=== PATIENT | male | born 1985 | race African-American/Black ===

== ENCOUNTER 2019-10-22 03:54 | Emergency (ER) | payer MEDICAID ==
[~2019-10-22] VITALS: Ht 182.9 cm; Wt 84.0 kg
[2019-10-22] MEDS ORDERED: SODIUM CHLORIDE 0.9% 1,000 ML IV ONE (04:09)
[2019-10-22] MEDS ORDERED: CEFAZOLIN 1000MG PREMIX 50 ML IV ONE (04:15)
[2019-10-22] MEDS ORDERED: ONDANSETRON HCL 4MG/2ML INJ IV ONE (04:15)
[2019-10-22] MEDS ORDERED: MORPHINE SULFATE 4 MG/ML CPJ (NOT FOR IM USE) IV ONE (04:15)
[2019-10-22] MEDS ORDERED: KETAMINE HCL 50 MG/ML 10ML IV ONE (04:15)
[2019-10-22] MEDS ORDERED: BACITRACIN ZINC OINT UDPKT TOP ONE (04:15)
[2019-10-22] MEDS ORDERED: TETANUS, DIPHTHERIA, PERTUSSIS VAC/PF 0.5ML (>7YR OLD) IM ONE (04:15)
[2019-10-22 04:55] LABS: BASOPHILS % 0.5 % (0.0-2.0); EOSINOPHILS % 1.7 % (0.0-5.0); HEMATOCRIT. 42.7 % (42.0-52.0); HEMOGLOBIN. 14.9 g/dL (14.0-18.0); LYMPHOCYTES % 20.5 % (20.0-50.0); MEAN CORPUSCULAR HEMOGLOBIN 32.2 pg (28.0-32.0); MEAN CORPUSCULAR VOLUME 92.4 fL (80.0-94.0); MEAN PLATELET VOLUME 7.5 fl (7.4-10.4); MONOCYTES % 6.2 % (2.0-8.0); NEUTROPHILS % 71.1 % (40.0-76.0); PLATELET 258 x1000/uL (130-400); RED BLOOD CELL COUNT 4.62 mill/uL (4.7-6.1); RED CELL DISTRIBUTION WIDTH 13.7 % (11.6-14.6)
[2019-10-22 04:59] LABS: CHLORIDE 109 mEq/L (98-107)
[2019-10-22 05:03] LABS: ETHANOL BLOOD < 10 mg/dL
[2019-10-22 12:27] VITALS: BP 152/82
== END 2019-10-22 12:38 | disposition home or self-care (01) ==
LOC: ER 03:54
DX: S82.892A Other fracture of left lower leg, initial encounter for closed fracture (principal); M25.572 Pain in left ankle and joints of left foot; V19.9XXA Pedal cyclist (driver) (passenger) injured in unspecified traffic accident, initial encounter; Y93.55 Activity, bike riding; Y92.9 Unspecified place or not applicable; Y99.9 Unspecified external cause status; Z88.6 Allergy status to analgesic agent
CPT/HCPCS: 27840; 36415; 73120; 73590; 73600; 80048; 80320; 85025; 90471; 90715; 96365; 96375; 99152; 99285; J0690; J2270; J2405; J3490; J7030; Z7610; G0480